=== PATIENT | female | born 1990 | race Caucasian/White ===

== ENCOUNTER 2020-04-04 10:25 | Emergency (ER) | payer MEDICAID ==
[~2020-04-04] VITALS: Ht 157.5 cm; Wt 68.9 kg
[2020-04-04 10:25] VITALS: BP_SYST 146
--- NOTE | 2020-04-04 10:30 | NUR ---
PT IN BED 8
--- NOTE | 2020-04-04 10:40 | NUR ---
DR. LANDA AT BEDSIDE
--- NOTE | 2020-04-04 10:45 | NUR ---
PT REPORTS FALLING AT THE [place] 2 DAYS AGO AND HITTING FINGER, ALSO HAS SCABS ON FACE FROM SAME FALL. REPORTS SWELLING AND PAIN WORSENING WITH MOVEMENT. [id number], V/S STABLE.
--- NOTE | 2020-04-04 10:50 | NUR ---
x-ray at the bedside
[2020-04-04 11:20] VITALS: BP_SYST 146
--- NOTE | 2020-04-04 11:22 | NUR ---
Patient given written and verbal discharge instructions and verbalizes understanding. ER MD discussed with patient the results and treatment provided. Patient in stable condition. ID arm band removed. Rx of Tramadol given. Patient educated on pain management and to follow up with PMD. Pain Scale 3/10. Opportunity for questions provided and answered. Medication side effect fact sheet provided.
== END 2020-04-04 11:20 | disposition home or self-care (01) ==
LOC: SED 10:25
DX: S62.615A Displaced fracture of proximal phalanx of left ring finger, initial encounter for closed fracture (principal); Z88.6 Allergy status to analgesic agent; W18.39XA Other fall on same level, initial encounter; Y93.89 Activity, other specified; Y92.89 Other specified places as the place of occurrence of the external cause; Y99.8 Other external cause status
CPT/HCPCS: 73140-TC; 99283